=== PATIENT | male | born 1960 | race Caucasian/White ===

== ENCOUNTER 2016-10-12 09:14 | Emergency (ER) | payer OTHER ==
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
[2016-10-12 10:49] VITALS: BP 107/74
== END 2016-10-12 10:45 | disposition home or self-care (01) ==
LOC: ER 09:14
DX: S43.102A Unspecified dislocation of left acromioclavicular joint, initial encounter (principal); M25.512 Pain in left shoulder; V19.9XXA Pedal cyclist (driver) (passenger) injured in unspecified traffic accident, initial encounter; F17.210 Nicotine dependence, cigarettes, uncomplicated
CPT/HCPCS: 99283